=== PATIENT | female | born 1980 | race Caucasian/White ===

== ENCOUNTER → 2016-05-20 | Outpatient (CLI) | payer MEDICARE, OTHER ==
[~2016-05-20] MED LIST: AZEL0.05 EACH EYE; LORA-474 PO; MULT1TAB84 PO; TYLE325T PO; VIST25CA PO; ZIPR40 PO; ZYRT10TA PO
== END ==
LOC: HLAB 08:54
PROVIDERS: ATTEND Family Medicine
DX: K21.9 Gastro-esophageal reflux disease without esophagitis (principal); D64.9 Anemia, unspecified; F84.0 Autistic disorder; E78.5 Hyperlipidemia, unspecified; H91.90 Unspecified hearing loss, unspecified ear; G91.9 Hydrocephalus, unspecified; Z98.2 Presence of cerebrospinal fluid drainage device; Z68.20 Body mass index [BMI] 20.0-20.9, adult

== ENCOUNTER → 2016-06-24 | Outpatient (CLI) | payer MEDICARE, OTHER | LOC: CLAB 08:59 | PROVIDERS: ATTEND Family Medicine | DX: F84.0 Autistic disorder (principal); K21.9 Gastro-esophageal reflux disease without esophagitis; F63.81 Intermittent explosive disorder; G91.9 Hydrocephalus, unspecified; H91.90 Unspecified hearing loss, unspecified ear; D69.6 Thrombocytopenia, unspecified; E78.5 Hyperlipidemia, unspecified; D64.9 Anemia, unspecified; R53.83 Other fatigue; Z98.2 Presence of cerebrospinal fluid drainage device; Z68.20 Body mass index [BMI] 20.0-20.9, adult | CPT/HCPCS: 36415 ==

== ENCOUNTER → 2016-10-24 | Outpatient (CLI) | payer MEDICARE, OTHER ==
[~2016-10-24] MED LIST changes: +FLUO-1 PO; -VIST25CA PO
== END ==
LOC: CLAB 07:48
PROVIDERS: ATTEND Internal Medicine Endocrinology, Diabetes & Metabolism
DX: E04.9 Nontoxic goiter, unspecified (principal); D89.89 Other specified disorders involving the immune mechanism, not elsewhere classified
CPT/HCPCS: 36415